=== PATIENT | female | born 1955 | race Caucasian/White ===

== ENCOUNTER → 2025-06-01 | Outpatient (CLI) | payer MEDICARE, BC ==
[2025-06-01 14:24] VITALS: BP 157/93; PULSE 73; TEMP 98.2; BMI 34.7
--- NOTE | 2025-06-04 16:11 | P.HPBAR ---
Bariatric H&P - History & Physicial H&P Date: 06/01/25 History & Physicial: Visit/CC: lap band follow up Patient initial contact: Initial weight: Initial weight in pounds: Height: 5 ft 10 in Initial BMI: Last weight: Current weight: 109.769 kg Current weight in pounds: 242.00 Current BMI: 34.7 [place] body weight (based on NIH guidelines): 68.5 kg Excess body weight loss: The patient is a 69 year-old F who presents for Bariatric Assessment. patient presents today for Lap-Band follow-up. She is requesting a fill of her Lap- Band. Is currently hungry. Past Medical History Past Medical History: No Reported History History of Any Multi-Drug Resistant Organisms: None Reported Past Surgical History: Bariatric Surgery, Cholecystectomy, Hysterectomy Additional Past Surgical History / Comment(s): lap band 2009 Past Anesthesia/Blood Transfusion Reactions: No Reported Reaction Past Psychological History: No Psychological Hx Reported Smoking Status: Never smoker Past Alcohol Use History: None Reported Past Drug Use History: None Reported Surgical - Exam Vital Signs Temp Pulse BP 98.2 F 73 157/93 06/01/25 14:13 06/01/25 14:13 06/01/25 14:13 - General well developed, well nourished, no distress - Eyes PERRL - ENT normal pinna, normal nares Bariatric Assessment & Plan Plan: Patient's Lap-Band was adjusted. She had 1 cc out of the band. She will follow-up in 4 weeks. Bariatric Checklist Checklist: Plan: Checklist: EGD: 1. Hiatal hernia: 2. H. Pylori: HgbA1c: Vitamin D: Smoking: Primary care physician referral: Psychiatry clearance: Cardiology clearance: Sleep study: Diet journal: VTE risk score: VTE risk level: Rehab needs at discharge:
== END ==
LOC: BARWHC3 09:25
PROVIDERS: ATTEND Surgery
DX: E66.01 Morbid (severe) obesity due to excess calories (principal); Z68.34 Body mass index [BMI] 34.0-34.9, adult; Z88.0 Allergy status to penicillin
CPT/HCPCS: 99202

== ENCOUNTER → 2025-06-02 | Outpatient (CLI) | payer MEDICARE, BC ==
[2025-06-02 10:48] VITALS: BP 169/91; PULSE 80; RESP 16; TEMP 98.1; BMI 34.1
--- NOTE | 2025-06-04 16:13 | P.HPBAR ---
Bariatric H&P - History & Physicial H&P Date: 06/04/25 History & Physicial: Visit/CC: Band too Tight Patient initial contact: Initial weight: 107.955 kg Initial weight in pounds: 238.00 Height: 5 ft 10 in Initial BMI: 34.1 Last weight: Current weight: 107.955 kg Current weight in pounds: 238.00 Current BMI: 34.1 [place] body weight (based on NIH guidelines): 68.5 kg Excess body weight loss: 0.0% The patient is a 69 year-old F who presents for Bariatric Assessment. patient presents today for Lap-Band adjustment. She states her band is too tight? Past Medical History Past Medical History: No Reported History History of Any Multi-Drug Resistant Organisms: None Reported Past Surgical History: Bariatric Surgery, Cholecystectomy, Hysterectomy Additional Past Surgical History / Comment(s): lap band 2009 Past Anesthesia/Blood Transfusion Reactions: No Reported Reaction Past Psychological History: No Psychological Hx Reported Smoking Status: Never smoker Past Alcohol Use History: None Reported Past Drug Use History: None Reported Surgical - Exam Vital Signs Temp Pulse Resp BP 98.1 F 80 16 169/91 06/02/25 10:44 06/02/25 10:44 06/02/25 10:44 06/02/25 10:44 - General well developed, well nourished, no distress - Eyes normal ocular movement - Respiratory normal expansion - Cardiovascular Rhythm: regular Bariatric Assessment & Plan Plan: The patient Lap-Band was empty. She had 6 cc removed from the band. Bariatric Checklist Checklist: Plan: Checklist: EGD: 1. Hiatal hernia: 2. H. Pylori: HgbA1c: Vitamin D: Smoking: Primary care physician referral: Psychiatry clearance: Cardiology clearance: Sleep study: Diet journal: VTE risk score: VTE risk level: Rehab needs at discharge:
== END ==
LOC: BARWHC3 10:20
PROVIDERS: ATTEND Surgery
DX: E66.01 Morbid (severe) obesity due to excess calories (principal); Z68.34 Body mass index [BMI] 34.0-34.9, adult; Z88.0 Allergy status to penicillin
CPT/HCPCS: 99211

== ENCOUNTER → 2025-06-22 | Outpatient (CLI) | payer MEDICARE, BC ==
[2025-06-22 10:42] VITALS: BP 141/81; PULSE 68; RESP 16; TEMP 97.9; BMI 35.2
--- NOTE | 2025-06-22 14:13 | P.HPBAR ---
Bariatric H&P - History & Physicial H&P Date: 06/22/25 History & Physicial: Visit/CC: f/u lap band Patient initial contact: Initial weight: 107.955 kg Initial weight in pounds: 238.00 Height: 5 ft 10 in Initial BMI: 34.1 Last weight: Current weight: 111.13 kg Current weight in pounds: 245.00 Current BMI: 35.2 [place] body weight (based on NIH guidelines): 68.5 kg Excess body weight loss: The patient is a 69 year-old F who presents for Bariatric Assessment. Patient presents for questing a refill of her band. Past Medical History Past Medical History: No Reported History Additional Past Medical History / Comment(s): Pt states no medical history History of Any Multi-Drug Resistant Organisms: None Reported Past Surgical History: Bariatric Surgery, Cholecystectomy, Hysterectomy Additional Past Surgical History / Comment(s): lap band 2009 Past Anesthesia/Blood Transfusion Reactions: No Reported Reaction Past Psychological History: No Psychological Hx Reported Smoking Status: Never smoker Past Alcohol Use History: None Reported Past Drug Use History: None Reported - Past Family History Mother Family Medical History: Diabetes Mellitus, Hypertension Surgical - Exam Vital Signs Temp Pulse Resp BP 97.9 F 68 16 141/81 06/22/25 10:32 06/22/25 10:32 06/22/25 10:32 06/22/25 10:32 - General well developed, well nourished - Abdomen Abdomen: soft, non tender Bariatric Assessment & Plan Plan: Patient Lap-Band adjusted. She initially had 4 cc added. This was too much. The patient had 1 cc removed and she currently has 3 cc in the band. Bariatric Checklist Checklist: Plan: Checklist: EGD: 1. Hiatal hernia: 2. H. Pylori: HgbA1c: Vitamin D: Smoking: Primary care physician referral: Psychiatry clearance: Cardiology clearance: Sleep study: Diet journal: VTE risk score: VTE risk level: Rehab needs at discharge:
== END ==
LOC: BARWHC3 10:18
PROVIDERS: ATTEND Surgery
DX: E66.01 Morbid (severe) obesity due to excess calories (principal); Z68.35 Body mass index [BMI] 35.0-35.9, adult; Z88.5 Allergy status to narcotic agent
CPT/HCPCS: 43999